=== PATIENT | male | born 1960 | race Two or more races ===

== ENCOUNTER 2018-08-07 10:27 | Emergency (ER) | payer MEDICAID ==
[~2018-08-07] VITALS: Ht 167.6 cm; Wt 70.3 kg
[2018-08-07 10:27] VITALS: BP 128/76
[2018-08-07] MEDS ORDERED: FLUORESCEIN SODIUM OPHTH 1 EA STRIP OP ONE (11:00)
[2018-08-07] MEDS ORDERED: TETRACAINE HCL/PF 0.5% UD 2 ML BOTTLE OP ONE (11:00)
[2018-08-07] MEDS ORDERED: TETRACAINE HCL/PF 0.5% UD 2 ML BOTTLE ONE ×2 (11:07→11:12)
[2018-08-07] MEDS ORDERED: FLUORESCEIN SODIUM OPHTH 1 EA STRIP ONE ×2 (11:07→11:12)
== END 2018-08-07 12:12 | disposition home or self-care (01) ==
LOC: ER 10:27
DX: T15.01XA Foreign body in cornea, right eye, initial encounter (principal); W45.8XXA Other foreign body or object entering through skin, initial encounter; Y93.89 Activity, other specified; Y92.89 Other specified places as the place of occurrence of the external cause; Y99.8 Other external cause status
CPT/HCPCS: 65222; 99284; A4606; Z7610